=== PATIENT | female | born 1955 | race Caucasian/White ===

== ENCOUNTER → 2017-01-08 | Outpatient (CLI) | payer MEDICARE, MEDICAID ==
[~2017-01-08] MED LIST: ALBU0.8322 IH; ALBU2.5V4 IH; ALPR.5T PO; ATEN25TA PO; CITA40TA19 PO; CYCL10TA9 PO; DICY10CA26 PO; FLUT1DIS26 IH; FNT25TD TD; GBPN300C PO; HYDR1TAB86 PO; LORA2TAB PO; MOME13HF IH; NAPR-243 PO; ROPI0.5T2 PO; WRF10T PO; WRF2.5T PO; WRF5T PO; ZLP10T PO
--- NOTE | 2017-01-08 15:26 | Diagnostic Imaging Report ---
INDICATION: Back pain. Previous history of cervical fusion and laminectomy. Noncontrasted images of the thoracic spine are available for review. FINDINGS: Sagittal images show good alignment of the vertebral bodies. Body height is well maintained with no compression fractures. No marrow changes are seen throughout the thoracic spine. Discs show normal contour with no disc herniations. There is no spinal stenosis. The thoracic cord appears normal throughout its course. Conus medullaris is in good position at T12. The paraspinal soft tissues appear normal. IMPRESSION: Normal MRI of the thoracic spine. Dictated by: Dictated on workstation # [id number]
--- NOTE | 2017-01-08 15:26 | Diagnostic Imaging Report ---
PROCEDURE: MR imaging cervical spine without contrast. TECHNIQUE: Multiplanar, multisequence MR imaging of the cervical spine was performed without contrast. INDICATION: History of previous cervical fusion and laminectomy. Continued neck pain. COMPARISON: No previous studies for comparison. FINDINGS: Sagittal images show good alignment of the vertebral bodies. Body height is well maintained. Disc spaces are well preserved. There are pedicle screws present from C3 through C7. These are causing considerable artifact. There is good decompressive laminectomy noted with no spinal stenosis. There is mild posterior facet and ligamentous hypertrophy at the C3 and T1 levels. These are not causing significant encroachment upon the canal. The cervical cord appears normal with no compression. No evidence of increased T2 signal within the cord. The atlantoaxial joint appears in good alignment with mild degenerative change. The prevertebral soft tissues appear normal. IMPRESSION: 1. Laminectomy with fusion with pedicle screws and rods at C3 through C7. No evidence recurrent stenosis. No focal disc herniations. 2. There is mild posterior facet and ligamentous hypertrophy at C3 and T1. Dictated by: Dictated on workstation # [id number]
== END ==
LOC: RAD 13:13
PROVIDERS: ATTEND Orthopaedic Surgery Orthopaedic Surgery of the Spine
DX: M50.30 Other cervical disc degeneration, unspecified cervical region (principal); M54.6 Pain in thoracic spine
CPT/HCPCS: 72141; 72146

== ENCOUNTER → 2019-05-24 | Outpatient (CLI) | payer MEDICARE, MEDICAID | END | disposition home or self-care (01) | LOC: PREOP 15:14 | PROVIDERS: ATTEND Surgery | DX: Z01.818 Encounter for other preprocedural examination (principal) ==

== ENCOUNTER 2019-05-25 06:02 | Day surgery (SDC) | payer MEDICARE ==
[2019-05-25] VITALS (11 sets, daily range): BP systolic 108–149; BP diastolic 68–92
[~2019-05-25] VITALS: Ht 157.5 cm; Wt 75.3 kg
[2019-05-25] MEDS ORDERED: proPOfol 200 MG/20 ML (DIPRIVAN) VIAL IV ONE (06:48)
[2019-05-25] MEDS ORDERED: LIDOCAINE PF 2% 5 ML (XYLOCAINE) VIAL ONE (06:48)
[2019-05-25] MEDS ORDERED: fentaNYL INJECTION 100 MCG/2 ML AMP ONE (06:49)
[2019-05-25] MEDS ORDERED: MIDAZOLAM 2 MG/2 ML (VERSED) VIAL ONE (06:49)
[2019-05-25] MEDS ORDERED: DEXAMETHASONE 10 MG/ML (DECADRON) 1 ML VIAL ONE (06:55)
[2019-05-25] MEDS ORDERED: ONDANSETRON 4 MG/2 ML (SDV) Z0FRAN ONE (06:55)
[2019-05-25] MEDS ORDERED: SEVOFLURANE (ULTANE) 15 ML INHAL SOLN ONE ×2 (06:55→08:18)
[2019-05-25] MEDS ORDERED: BUP/EPI 0.5% 1:200,000 (MARCAINE) 10ML VIAL IJ ONE (07:11)
--- NOTE | 2019-05-25 08:17 | Progress Note-Pre Operative ---
Pre-Operative Progress Note H&P Reviewed The H&P was reviewed, patient examined and no changes noted. Date Seen by Provider: May 25, 2019 Time Seen by Provider: 08:00 Date H&P Reviewed: May 25, 2019 Time H&P Reviewed: 08:00 Pre-Operative Diagnosis: skin lesions right arm and right inner thigh KIMBERLY ALEXIS DO May 25, 2019 08:17
[2019-05-25] MEDS ORDERED: LACTATED RINGERS 1,000 ML IV PRN (08:42)
--- NOTE | 2019-05-25 08:43 | NUR ---
Initial visit: pt's printed circuit designer's was present. I joined them as the printed circuit designer's offered prayer. Once she exited, I remained with the pt, providing active listening. The pt attends a [facility] in [place], [place] where she has laborer marine terminal, supportive relationships. She shared experiences raising two of her grandchildren, who are now teenagers. The pt was a year ago, and shared tearfully how difficult the past year has been, and ways she continues to grieve her , Floyd. I offered compassionate presence and prayer. She hugged me at the close of our visit and thanked me for listening.
[2019-05-25] MEDS ORDERED: PHENYLEPHRINE 100 MCG/ML 10 ML (ANESTHESIA) SYR ONE (08:53)
--- NOTE | 2019-05-25 09:01 | Progress Note-Post Operative ---
Post-Operative Progess Note Surgeon (s)/Process Stripper (s) Surgeon KIMBERLY ALEXIS DO Process Stripper: na Pre-Operative Diagnosis skin lesions right arm and right inner thigh Post-Operative Diagnosis same Procedure & Operative Findings Date of Procedure 05/25/19 Procedure Performed/Findings excision right forearm lesions and right inner thigh lesion Anesthesia Type mac c local Estimated Blood Loss Estimated blood loss (mL): min Specimens/Packing Specimens Removed distal right forearm, proximal right forearm, right inner thigh KIMBERLY ALEXIS DO May 25, 2019 09:01
--- NOTE | 2019-05-25 09:04 | Discharge Inst-Simple/Standard ---
Discharge Inst-Standard Patient Instructions/Follow Up Plan of Care/Instructions/FU: Dieter 12 -14 days Activity as Tolerated: Yes Discharge Diet: Regular Diet Other Inst to Patient Follow up Appt: Make appointment for 12-14 days Instructions: No strenuous activity. May shower in 24 hours, no tub bath or soaking. Use incentive spirometer at home as directed. No Smoking Keep area clean and dry. Skin/Wound Care: May remove bandages. You need to leave the white strips over incision on they will fall off on their own. Symptoms to Report: Appetite Changes, Extremity Discoloration, Numbness/Tingling, Swelling Increased, Bleeding Excessive, Eyesight Changes, Pain Increased, Urine Color Change, Constipation(Persistent), Fever over 101 degree F, Pain/Pressure in chest, Urinating Difficulty, Cough Up/Vomit Blood, Heart Beat Irreg/Pounding, Pain/Pressure in jaw, Vaginal Bleeding Increase, Cramps in feet or legs, Lightheadedness, Pain/Pressure in shoulder, Diarrhea(Persistent), Memory Changes Suddenly, Questions/Concerns, Weight gain consecutive days, Dizziness/Fainting, Nausea/Vomiting, Shortness of Breath, Weight gain over 2 pounds If questions or concerns contact your physician Or seek help at emergency department. KIMBERLY ALEXIS DO May 25, 2019 09:04
[2019-05-25] MEDS ORDERED: HYDROmorphone 2 MG/ML VIAL (DILAUDID) IV ONE (09:15)
[2019-05-25] MEDS ORDERED: ONDANSETRON 4 MG/2 ML (SDV) Z0FRAN IVP PRN (09:15)
--- NOTE | 2019-05-25 13:36 | OPERATIVE REPORT ---
DATE OF SERVICE: 05/25/2019 PREOPERATIVE DIAGNOSIS: Skin lesions of the right upper extremity x2 and right inner thigh x1. POSTOPERATIVE DIAGNOSIS: Skin lesions of the right upper extremity x2 and right inner thigh x1. PROCEDURE: Excision of skin lesion distal right forearm 0.9 x 1.6 cm, excision of proximal lesion right forearm 0.9 x 1.5 cm, excision of right inner thigh lesion 1.2 cm x 2.5 cm. SURGEON: Kimberly Garcias DO ANESTHESIA: MAC with local. ESTIMATED BLOOD LOSS: Minimal. COMPLICATIONS: None. INDICATIONS: The patient is a 64-year-old female who wished to have lesions removed. She understands risks and benefits of procedure and wished to proceed with procedure. Consent was signed in the chart. PROCEDURE IN DETAIL: The patient was taken to the operating suite. She was too anxious to have done in the office. Timeout was performed. The patient was prepped and draped in sterile fashion. Local anesthetic was infiltrated around the lesions. Over the right forearm, elliptical incision was made with a 15 blade scalpel, removing skin and subcutaneous tissue. The measurements are as noted as above. Once the skin and subcutaneous tissue was removed, the skin was closed using 4-0 nylon in a simple running fashion. Both the right proximal and distal lesions were removed in same fashion. The area was washed and dried and sterile bandage was applied. The right inner thigh was prepped and draped in sterile fashion. Local anesthetic was infiltrated around the lesion. The elliptical incision was made, removing skin and subcutaneous tissue. The skin was then closed using 4-0 nylon in a simple running fashion. The area was then washed and dried and sterile bandage was applied. The patient tolerated procedure well without any complications. She was taken to recovery room in stable condition. Job ID: [id number] DocumentID: [id number] Dictated Date: 05/25/2019 09:08:09 Tension Machine Operator Date: 05/25/2019 13:35:57 Dictated By: KIMBERLY GARCIAS DO
--- NOTE | 2019-05-25 13:38 | Anesthesia-General Post-Op ---
General Patient Condition Mental Status/LOC: Same as Preop Cardiovascular: Satisfactory Nausea/Vomiting: Absent Respiratory: Satisfactory Pain: Controlled Complications: Absent Post Op Complications Complications None Follow Up Care/Instructions Patient Instructions None needed. Anesthesia/Patient Condition Patient Condition Patient is doing well, no complaints, stable vital signs, no apparent adverse anesthesia problems. No complications reported per nursing. FABRIZIO VILLAGOMEZ CRNA May 25, 2019 13:38
== END 2019-05-25 11:40 | disposition home or self-care (01) ==
LOC: SDC 06:02
PROVIDERS: ATTEND Surgery
DX: L82.1 Other seborrheic keratosis (principal); D21.21 Benign neoplasm of connective and other soft tissue of right lower limb, including hip; I10 Essential (primary) hypertension; G47.33 Obstructive sleep apnea (adult) (pediatric); J44.9 Chronic obstructive pulmonary disease, unspecified; F32.9 Major depressive disorder, single episode, unspecified; F41.9 Anxiety disorder, unspecified; K44.9 Diaphragmatic hernia without obstruction or gangrene; K21.9 Gastro-esophageal reflux disease without esophagitis; Z11.2 Encounter for screening for other bacterial diseases; Z88.0 Allergy status to penicillin; Z88.1 Allergy status to other antibiotic agents; Z79.899 Other long term (current) drug therapy; Z96.651 Presence of right artificial knee joint; Z87.891 Personal history of nicotine dependence
CPT/HCPCS: 87081

== ENCOUNTER 2019-05-29 08:17 | Emergency (ER) | payer MEDICARE ==
[~2019-05-29] VITALS: Ht 157.5 cm; Wt 71.7 kg
--- NOTE | 2019-05-29 08:52 | ED Integumentary General ---
General Chief Complaint: Skin/Wound Problems Stated Complaint: WOUND CHECK Source: patient Exam Limitations: no limitations History of Present Illness Date Seen by Provider: May 29, 2019 Time Seen by Provider: 08:45 Initial Comments 64-year-old white female presents for a wound check following excisions by Dr. Garcias of her right arm and right thigh approximately week ago. Patient is concerned because she has some bruising over the excision site of the proximal right thigh. Patient associated fever, chills, purulent drainage, paresthesia or weakness in extremities. Allergies and Home Medications Allergies Coded Allergies: Cephalexin Monohydrate (Unverified Allergy, HIVES, 11/10/12) Erythromycin Base (Unverified Allergy, NAUSEA, 11/10/12) SEVERE UPSET STOMACH Haloperidol Lactate (Unverified Allergy, 11/10/12) SEVERE ANXIETY Metronidazole HCl (Unverified Allergy, NAUSEA, 11/10/12) Penicillins (Unverified Allergy, HIVES, 11/10/12) haloperidol (Unverified Allergy, 11/10/12) SEVERE ANXIETY metronidazole (Unverified Allergy, NAUSEA, 11/10/12) Uncoded Allergies: BANDAIDS (Allergy, RASH, 11/10/12) Home Medications Albuterol Sulfate 2.5 Mg/3 Ml Solution, 2.5 MG IH Q6HR PRN, (Reported) PRN WHEEZING Atenolol 25 Mg Tablet, 25 MG PO DAILY, (Reported) Citalopram Hydrobromide 40 Mg Tablet, 40 MG PO DAILY, (Reported) Cyclobenzaprine Hcl 10 Mg Tablet, 10 MG PO BID, (Reported) Dicyclomine Hcl 10 Mg Capsule, 10 MG PO QID, (Reported) BEFORE MEALS AND AT BEDTIME Fluticasone/Salmeterol 1 Disk Inhp, 1 PUFF IH BID, (Reported) Gabapentin 300 Mg Cap, 300 MG PO TID, (Reported) Hydrocodone Bit/Acetaminophen 1 Each Tablet, 10-500 MG PO Q6H PRN, (Reported) PRN PAIN Lorazepam 2 Mg Tablet, 1 EACH PO HS PRN, (Reported) Ropinirole Hcl 0.5 Mg Tablet, 0.5 MG PO HS, (Reported) Warfarin Sodium 2.5 Mg Tablet, 1 EACH PO SUTUTHSA, (Reported) Warfarin Sodium 5 Mg Tablet, 1 EACH PO MWF, (Reported) Zolpidem Tartrate 10 Mg Tab, 10 MG PO HS PRN, (Reported) PRN SLEEP Patient Home Medication List Home Medication List Reviewed: Yes Review of Systems Review of Systems Constitutional: No chills, No fever EENTM: no symptoms reported Respiratory: no symptoms reported Cardiovascular: no symptoms reported Gastrointestinal: no symptoms reported Genitourinary: no symptoms reported Musculoskeletal: no symptoms reported Skin: see HPI (right thigh.), other (the 2 excisions from the right forearm appear to be healing well and have no ecchymosis.There is an old bruise at the excision site of the proximal medial right thigh. The bruising measures approximate 6 cm in diameter. There is no undue inflammation or drainage.) Psychiatric/Neurological: No Symptoms Reported Endocrine: No Symptoms Reported Hematologic/Lymphatic: No Symptoms Reported Past Jxkehlc-Olyfnw-Ylizfy Hx Past Med/Social Hx: Reviewed Nursing Past Med/Soc Hx Patient Social History Alcohol Use: Denies Use Recreational Drug Use: No Smoking Status: Former Smoker Type Used: Cigarettes Former Smoker, Quit: Oct 11, 1999 2nd Hand Smoke Exposure: No Recent Hopitalizations: No Immunizations Up To Date Tetanus Booster (TDap): Less than 5yrs PED Vaccines UTD: No Date of Pneumonia Vaccine: Oct 11, 2012 Date of Influenza Vaccine: Oct 26, 2012 Seasonal Allergies Seasonal Allergies: No Past Medical History Surgeries: Yes (CATARACTS, KNEE ARTH, FATTY TUMORS, BILAT CARPAL TUNNEL, CUBICAL TUNNEL ELB) Respiratory: Yes COPD Cardiac: Yes Neurological: No Reproductive Disorders: No Female Reproductive Disorders: Denies Sexually Transmitted Disease: No HIV/AIDS: No Genitourinary: No Gastrointestinal: Yes (DIVERTICULITIS) Diverticulosis Musculoskeletal: Yes Degenerate Disk Disease, Arthritis, Chronic Back Pain Endocrine: No HEENT: Yes Cataract Hearing Impairment: Denies Cancer: No Psychosocial: Yes Anxiety Integumentary: No Blood Disorders: No Physical Exam Vital Signs Capillary Refill : General Appearance: WD/WN, no apparent distress HEENT: normal ENT inspection Neck: normal inspection Cardiovascular: regular rate, rhythm Respiratory: no respiratory distress Extremities: normal range of motion Neurologic/Psychiatric: no motor/sensory deficits Skin: normal color, warm/dry, other (the 2 incisions from the right forearm are healing well without evidence of inflammation or ecchymosis. Examination of the proximal medial right thigh demonstrates an old bruise measuring approximately 6 cm in diameter that is without evidence of undue inflammation. There is no drainage from the incision site. The wound edges appear to be healing satisfactorily.) Progress/Results/Core Measures Progress Progress Note : Time: 08:49 Progress Note I reassured the patient. Paper tape was applied to the right thigh incision. Patient was asked follow up with her surgeon as scheduled in one more week. Departure Impression Primary Impression: Visit for wound check Disposition: 01 HOME, SELF-CARE Condition: Unchanged Departure-Patient Inst. Decision time for Depature: 08:50 Referrals: CHARLES CAO APRN (PCP) Primary Care Physician NO,LOCAL PHYSICIAN (Family) Primary Care Physician KIMBERLY GARCIAS DO Add. Discharge Instructions: Follow-up with Dr. Garcias and a week as scheduled. Continue to apply paper tape to the right thigh incision. Return if any problems or questions. All discharge instructions reviewed with patient and/or family. Voiced un derstanding. SHANTA SCOTT MD May 29, 2019 08:52
[2019-05-29 08:55] VITALS: BP 121/75
--- NOTE | 2019-05-29 08:55 | NUR ---
Pt discharged to home after area of ecchymosis outlined on the upper right thigh.
== END 2019-05-29 08:55 | disposition home or self-care (01) ==
LOC: EDUNIT# 08:17 → ER FS 08:18
DX: S70.11XD Contusion of right thigh, subsequent encounter (principal); J44.9 Chronic obstructive pulmonary disease, unspecified; F41.9 Anxiety disorder, unspecified; Z87.19 Personal history of other diseases of the digestive system; Z88.1 Allergy status to other antibiotic agents; Z88.0 Allergy status to penicillin; Z88.8 Allergy status to other drugs, medicaments and biological substances; Z79.51 Long term (current) use of inhaled steroids; Z79.01 Long term (current) use of anticoagulants; Z87.891 Personal history of nicotine dependence; Z98.890 Other specified postprocedural states; X58.XXXD Exposure to other specified factors, subsequent encounter
CPT/HCPCS: 99282

== ENCOUNTER → 2019-07-10 | Outpatient (CLI) | payer MEDICARE ==
--- NOTE | 2019-07-10 15:16 | Diagnostic Imaging Report ---
PROCEDURE: MRI lumbar spine. TECHNIQUE: Multiplanar, multisequence MRI of the lumbar spine was performed without contrast. INDICATION: Low back pain. FINDINGS: There are no prior studies available for comparison. The T2 sagittal images show the vertebral body heights and alignment to be generally within normal limits. The intervertebral disc spaces are fairly well maintained although there is desiccation of the disc at every level. The thecal sac is generous. There is no sign of spinal stenosis or nerve root encroachment at any level. There is no abnormal signal arising from the cord or the vertebral bodies to indicate an acute abnormality. There is no sign of a paraspinal mass. IMPRESSION: 1. There is mild degenerative disc disease throughout the lumbar spine. There is no evidence for spinal stenosis or nerve root encroachment at any level. 2. There is no sign of an acute bony abnormality or of a cord lesion. Dictated by: Dictated on workstation # [id number]
== END ==
LOC: RAD 13:52
PROVIDERS: ATTEND Nurse Practitioner Family
DX: M51.16 Intervertebral disc disorders with radiculopathy, lumbar region (principal)
CPT/HCPCS: 72148

== ENCOUNTER → 2019-07-13 | Outpatient (CLI) | payer MEDICARE ==
--- NOTE | 2019-07-13 19:12 | Diagnostic Imaging Report ---
EXAMINATION: Magnetic resonance imaging of the pelvis and right hip without contrast DATE: July 13, 2019. COMPARISON: None. INDICATION: 64-year-old female, low back pain. Right hip and leg pain. TECHNIQUE: Magnetic Resonance Imaging sequences were performed of the pelvis and right hip. Without contrast. TENDONS AND MUSCLES: The gluteus qiana muscles and their origins and insertions are intact, bilaterally. The tendons and muscles of the greater trochanter - gluteus minimus, piriformis and gluteus medius - are intact, bilaterally. Both common hamstring attachments on the ischial tuberosities are intact and the extensor muscles of the thigh are intact. The visualized portions of the flexors and adductor muscles of the thigh and their attachments on the pelvis and hips are intact. Both iliopsoas and iliacus muscles are intact. The bilateral iliopsoas tendons are intact. HIPS AND SACROILIAC JOINTS: The contours of the femoral heads and acetabuli are smooth and symmetric. There is no hip joint effusion. There is no identified fluid filled labral tear or paralabral cyst on non-arthrogram evaluation. The sacroiliac joints are unremarkable. LUMBAR SPINE: There is a mild lumbar levocurvature. Additional assessment of the lumbar spine is limited. BONE: The bones all have normal configuration. The bone marrow signal is within normal limits. Specifically, negative for fracture, osteomyelitis, osteonecrosis or marrow replacing process. BURSAE AND SOFT TISSUES: The bursae and soft tissues surrounding the pelvis and hips are within normal limits. IMPRESSION: 1. Intact muscles and tendons. 2. No acute fracture, bone contusion or evidence of osteonecrosis. 3. Unremarkable appearance of the bilateral hip joints. Dictated by: Dictated on workstation # [id number]
== END ==
LOC: RAD 10:39
PROVIDERS: ATTEND Nurse Practitioner Family
DX: M25.551 Pain in right hip (principal); G89.29 Other chronic pain; M54.5 Low back pain; M79.604 Pain in right leg
CPT/HCPCS: 73721

== ENCOUNTER 2019-07-14 12:29 | Emergency (ER) | payer MEDICARE ==
[~2019-07-14] VITALS: Ht 157.4 cm; Wt 66.8 kg
[2019-07-14] MEDS ORDERED: ORPHENADRINE 60 MG/2 ML (NORFLEX) AMP IM ONE (13:00)
[2019-07-14] MEDS ORDERED: KETOROLAC 30 MG/ML VIAL IM ONE (13:00)
--- NOTE | 2019-07-14 13:04 | ED General ---
General Chief Complaint: General Problems/Pain Stated Complaint: HIP/KNEE PAIN Source of Information: Patient Exam Limitations: No Limitations History of Present Illness Date Seen by Provider: Jul 14, 2019 Time Seen by Provider: 13:01 Initial Comments To ER per private vehicle from the radiology department where she just had a thoracic spine and mri done for some thoracic spine region muscle spasms. She has pain in her low back and down the right leg. Spelled going for several months. She is prescribed oxycodone 15 mg twice a day but only takes it once a day because she wants to get off of them. She is prescribed baclofen 3 times a day but only takes it once a day because she doesn't want to take pills. However she is here because of pain Timing/Duration: Other Severity: Moderate Allergies and Home Medications Allergies Coded Allergies: Cephalexin Monohydrate (Unverified Allergy, HIVES, 11/10/12) Erythromycin Base (Unverified Allergy, NAUSEA, 11/10/12) SEVERE UPSET STOMACH Haloperidol Lactate (Unverified Allergy, 11/10/12) SEVERE ANXIETY Metronidazole HCl (Unverified Allergy, NAUSEA, 11/10/12) Penicillins (Unverified Allergy, HIVES, 11/10/12) haloperidol (Unverified Allergy, 11/10/12) SEVERE ANXIETY metronidazole (Unverified Allergy, NAUSEA, 11/10/12) Uncoded Allergies: BANDAIDS (Allergy, RASH, 11/10/12) Home Medications Albuterol Sulfate 2.5 Mg/3 Ml Solution, 2.5 MG IH Q6HR PRN, (Reported) PRN WHEEZING Atenolol 25 Mg Tablet, 25 MG PO DAILY, (Reported) Citalopram Hydrobromide 40 Mg Tablet, 40 MG PO DAILY, (Reported) Cyclobenzaprine Hcl 10 Mg Tablet, 10 MG PO BID, (Reported) Dicyclomine Hcl 10 Mg Capsule, 10 MG PO QID, (Reported) BEFORE MEALS AND AT BEDTIME Fluticasone/Salmeterol 1 Disk Inhp, 1 PUFF IH BID, (Reported) Gabapentin 300 Mg Cap, 300 MG PO TID, (Reported) Hydrocodone Bit/Acetaminophen 1 Each Tablet, 10-500 MG PO Q6H PRN, (Reported) PRN PAIN Lorazepam 2 Mg Tablet, 1 EACH PO HS PRN, (Reported) Ropinirole Hcl 0.5 Mg Tablet, 0.5 MG PO HS, (Reported) Warfarin Sodium 2.5 Mg Tablet, 1 EACH PO SUTUTHSA, (Reported) Warfarin Sodium 5 Mg Tablet, 1 EACH PO MWF, (Reported) Zolpidem Tartrate 10 Mg Tab, 10 MG PO HS PRN, (Reported) PRN SLEEP Patient Home Medication List Home Medication List Reviewed: Yes Review of Systems Review of Systems Constitutional: see HPI EENTM: see HPI Respiratory: no symptoms reported Cardiovascular: no symptoms reported Genitourinary: no symptoms reported Musculoskeletal: no symptoms reported Skin: no symptoms reported Psychiatric/Neurological: No Symptoms Reported Hematologic/Lymphatic: No Symptoms Reported Past Phmjrqt-Xmynlv-Kjdgil Hx Patient Social History Type Used: Cigarettes Former Smoker, Quit: Oct 11, 1999 2nd Hand Smoke Exposure: No Recent Hopitalizations: No Immunizations Up To Date Tetanus Booster (TDap): Less than 5yrs PED Vaccines UTD: No Date of Pneumonia Vaccine: Oct 11, 2012 Date of Influenza Vaccine: Oct 26, 2012 Seasonal Allergies Seasonal Allergies: No Past Medical History Surgeries: Yes (CATARACTS, KNEE ARTH, FATTY TUMORS, BILAT CARPAL TUNNEL, CUBICAL TUNNEL ELB) Respiratory: Yes COPD Cardiac: Yes Neurological: No Reproductive Disorders: No Female Reproductive Disorders: Denies Sexually Transmitted Disease: No HIV/AIDS: No Genitourinary: No Gastrointestinal: Yes (DIVERTICULITIS) Diverticulosis Musculoskeletal: Yes Degenerate Disk Disease, Arthritis, Chronic Back Pain Endocrine: No HEENT: Yes Cataract Hearing Impairment: Denies Cancer: No Psychosocial: Yes Anxiety Integumentary: No Blood Disorders: No Physical Exam Vital Signs Capillary Refill : Height, Weight, BMI Height: 5'2.00" Weight: 158lbs. 0.0oz. [id number]; 30.4 BMI Method:Stated General Appearance: No Apparent Distress, WD/WN Eyes: Bilateral Eye Normal Inspection, Bilateral Eye PERRL, Bilateral Eye EOMI HEENT: PERRL/EOMI, TMs Normal Neck: Full Range of Motion, Normal Inspection, Non Tender Respiratory: No Accessory Muscle Use, No Respiratory Distress Cardiovascular: Regular Rate, Rhythm, Normal Peripheral Pulses Gastrointestinal: Normal Bowel Sounds, Non Tender, Soft Extremity: Normal Capillary Refill, Normal Inspection Neurologic/Psychiatric: Alert, Oriented x3 Skin: Normal Color, Warm/Dry Progress/Results/Core Measures Suspected Sepsis SIRS Temperature: Pulse: Respiratory Rate: Blood Pressure / Mean: Results/Orders My Orders Orders - ALFREDO SINGLETON APRN Ketorolac Injection (Toradol Injection) (07/14/19 13:00) Orphenadrine Injection (Norflex Injectio (07/14/19 13:00) Vital Signs/I&O Capillary Refill : Departure Communication (Admissions) She is able to get herself out of the wheelchair into bed without any assistance. Impression Primary Impression: Back pain Disposition: 01 HOME, SELF-CARE Condition: Stable Departure-Patient Inst. Decision time for Depature: 13:03 Referrals: CHARLES CAO APRN (PCP/Family) Primary Care Physician Patient Instructions: Upper Back Pain Add. Discharge Instructions: All discharge instructions reviewed with patient and/or family. Voiced understa nding. ALFREDO SINGLETON APRN Jul 14, 2019 13:04
[2019-07-14 13:37] VITALS: BP 145/76
== END 2019-07-14 13:38 | disposition home or self-care (01) ==
LOC: EDUNIT# 12:29 → ER 12:31
DX: M54.5 Low back pain (principal); J44.9 Chronic obstructive pulmonary disease, unspecified; F41.9 Anxiety disorder, unspecified; Z88.1 Allergy status to other antibiotic agents; Z88.0 Allergy status to penicillin; Z88.8 Allergy status to other drugs, medicaments and biological substances; Z79.51 Long term (current) use of inhaled steroids; Z79.01 Long term (current) use of anticoagulants; Z87.891 Personal history of nicotine dependence
CPT/HCPCS: 99284

== ENCOUNTER → 2019-07-14 | Outpatient (CLI) | payer MEDICARE ==
--- NOTE | 2019-07-14 13:42 | Diagnostic Imaging Report ---
EXAMINATION: MRI thoracic spine without contrast. INDICATION: Acute back pain with right-sided sciatica. TECHNIQUE: Multiplanar, multisequence MRI thoracic spine performed without contrast. COMPARISON: Comparison is made with a prior study from January 08, 2017. FINDINGS: Alignment of the thoracic spine remains normal. Vertebral body heights are well maintained. There are no findings of marrow signal abnormality present to suggest an acute osseous injury or suspicious underlying osseous lesion. Minimal degenerative endplate changes present within the mid thoracic spine. There is mild lower thoracic facet hypertrophy. There are no MR findings of thoracic cord signal abnormality or abnormal cord expansion. There are no findings of an abnormal epidural process. There are no findings of a focal disc herniation. There is no MR evidence of significant thoracic canal stenosis or evidence of high-grade thoracic neural foraminal stenosis. The paraspinal soft tissues are unremarkable. The aorta is normal in caliber. The kidneys appear nonobstructed. IMPRESSION: 1. Normal height and alignment of the thoracic spine. No acute or suspicious osseous abnormality demonstrated. 2. Minimal degenerative endplate changes and mild lower thoracic facet hypertrophy. There are no findings of a disc herniation. There is no MR evidence of thoracic canal or neural foraminal stenosis. 3. No cord signal abnormality or abnormal epidural process. Dictated by: Dictated on workstation # [id number]
== END ==
LOC: RAD 11:44
PROVIDERS: ATTEND Nurse Practitioner Family
DX: M54.41 Lumbago with sciatica, right side (principal)
CPT/HCPCS: 72146

== ENCOUNTER 2019-10-08 18:51 | Emergency (ER) | payer MEDICARE, MEDICAID ==
[~2019-10-08] VITALS: Ht 157.5 cm; Wt 73.5 kg
--- NOTE | 2019-10-08 19:26 | ED General ---
General Chief Complaint: Lower Extremity Stated Complaint: RT KNEE PAIN Nursing Triage Note: PT AMBULATE TO ROOM FS OF WITH C/O RIGHT KNEE PAIN. PT STATES THIS IS CHRONIC AND HAS A KNEE SURGERY SCHEDULED FOR 11.01.19. PT REPORTS SHE KNOWS SHE HAS FLUID ON THE KNEE AND THAT THE PAIN IS UNBEARABLE TODAY. PT REPORTS PREVIOUS SURGERY ON SAME KNEE THAT NEEDS REPAIRED. Nursing Sepsis Screen: No Definite Risk Source of Information: Patient History of Present Illness Date Seen by Provider: Oct 08, 2019 Time Seen by Provider: 19:25 Initial Comments 64-year-old female presenting with complaints of increased pain to her right knee. She has chronic pain with the right knee and is scheduled to work with [facility] [employer] to have the knee replacement revised. She also has noted that she had been having a lot of itching in her ears and was trying to clean her right ear earlier in the day when she started having bleeding from the ear canal. She was having some mild pain from that. She is not currently having any bleeding. She denies any new injury to her right knee to cause increased pain. She has had no new falls. She has chronically had issues with the knee since the previous knee replacement. It is been getting worse and again she is scheduled to work with [facility] in orthopedics to get a new revision of the prior knee replacement. She has oxycodone 15 mg that she takes twice a day to help control her pain. She feels like that has not been enough and it was worse today so she came to the emergency department. Allergies and Home Medications Allergies Coded Allergies: Cephalexin Monohydrate (Unverified Allergy, Unknown, HIVES, 07/14/19) Haloperidol Lactate (Unverified Allergy, Unknown, 07/14/19) SEVERE ANXIETY Metronidazole HCl (Unverified Allergy, Unknown, NAUSEA, 07/14/19) Penicillins (Unverified Allergy, Unknown, HIVES, 07/14/19) erythromycin base (Unverified Allergy, Unknown, NAUSEA, 07/14/19) SEVERE UPSET STOMACH haloperidol (Unverified Allergy, Unknown, 07/14/19) SEVERE ANXIETY metronidazole (Unverified Allergy, Unknown, NAUSEA, 07/14/19) Uncoded Allergies: BANDAIDS (Allergy, Unknown, RASH, 07/14/19) FIBERGLASS (Allergy, Unknown, 07/14/19) Home Medications Albuterol Sulfate 2.5 Mg/3 Ml Solution, 2.5 MG IH Q6HR PRN, (Reported) PRN WHEEZING Atenolol 25 Mg Tablet, 25 MG PO DAILY, (Reported) Citalopram Hydrobromide 40 Mg Tablet, 40 MG PO DAILY, (Reported) Cyclobenzaprine Hcl 10 Mg Tablet, 10 MG PO BID, (Reported) Dicyclomine Hcl 10 Mg Capsule, 10 MG PO QID, (Reported) BEFORE MEALS AND AT BEDTIME Fluticasone/Salmeterol 1 Disk Inhp, 1 PUFF IH BID, (Reported) Gabapentin 300 Mg Cap, 300 MG PO TID, (Reported) Hydrocodone Bit/Acetaminophen 1 Each Tablet, 10-500 MG PO Q6H PRN, (Reported) PRN PAIN Lorazepam 2 Mg Tablet, 1 EACH PO HS PRN, (Reported) Ropinirole Hcl 0.5 Mg Tablet, 0.5 MG PO HS, (Reported) Warfarin Sodium 2.5 Mg Tablet, 1 EACH PO SUTUTHSA, (Reported) Warfarin Sodium 5 Mg Tablet, 1 EACH PO MWF, (Reported) Zolpidem Tartrate 10 Mg Tab, 10 MG PO HS PRN, (Reported) PRN SLEEP Patient Home Medication List Home Medication List Reviewed: Yes Review of Systems Review of Systems Constitutional: No chills, No fever EENTM: ear discharge (bleeding from the right ear after cleaning it this morning), ear pain (right ear pain after cleaning it this morning) Respiratory: no symptoms reported Cardiovascular: no symptoms reported Gastrointestinal: no symptoms reported Genitourinary: no symptoms reported Musculoskeletal: see HPI Skin: No change in color, No rash Psychiatric/Neurological: Denies Headache Past Zguqffh-Qwyhdi-Asxqpn Hx Past Med/Social Hx: Reviewed Nursing Past Med/Soc Hx Patient Social History Alcohol Use: Denies Use Recreational Drug Use: No Smoking Status: Former Smoker Type Used: Cigarettes Former Smoker, Quit: Oct 11, 1999 2nd Hand Smoke Exposure: No Recent Foreign Travel: No Contact w/Someone Who Travel: No Recent Infectious Disease Expo: No Recent Hopitalizations: No Physical Abuse: No Sexual Abuse: No Mistreated: No Fear: No Immunizations Up To Date Tetanus Booster (TDap): Less than 5yrs PED Vaccines UTD: No Date of Pneumonia Vaccine: Oct 11, 2012 Date of Influenza Vaccine: Oct 26, 2012 Seasonal Allergies Seasonal Allergies: No Past Medical History Surgeries: Yes (CATARACTS, KNEE ARTH, FATTY TUMORS, BILAT CARPAL TUNNEL, CUBICAL TUNNEL ELB) Adenoidectomy, Gallbladder, Hysterectomy, Tonsillectomy Respiratory: Yes COPD Cardiac: Yes Hypertension Neurological: No Reproductive Disorders: No Female Reproductive Disorders: Denies Sexually Transmitted Disease: No HIV/AIDS: No Genitourinary: No Gastrointestinal: Yes (DIVERTICULITIS) Diverticulosis Musculoskeletal: Yes Degenerate Disk Disease, Arthritis, Chronic Back Pain Endocrine: No HEENT: Yes Cataract Hearing Impairment: Denies Cancer: No Psychosocial: Yes Anxiety, Depression Integumentary: No Blood Disorders: No Physical Exam Vital Signs Vital Signs - First Documented 10/08/19 10/08/19 19:10 20:23 Temp 36.6 Pulse 59 Resp 16 B/P (MAP) 124/56 (78) Pulse Ox 97 O2 Delivery Room Air Capillary Refill : Less Than 3 Seconds Height, Weight, BMI Height: 5'2.00" Weight: 158lbs. 0.0oz. [id number]; 29.00 BMI Method:Stated General Appearance: No Apparent Distress HEENT: TMs Normal, Moist Mucous Membranes, Other (and the patient was blood present in the right external auditory canal. Both canals appear dry with some flaky skin present but only at the right canal has an abrasion with blood) Extremity: Normal Range of Motion, No Calf Tenderness, Other (right knee is swollen which the patient reports is stable for her. There is diffuse tenderness of the knee. There is no bruising or abrasion. There is a clicking and popping with flexion of the knee.) Neurologic/Psychiatric: Alert, Oriented x3, Normal Mood/Affect Skin: Normal Color, Warm/Dry Progress/Results/Core Measures Suspected Sepsis Recent Fever Within 48 Hours: No Infection Criteria Present: None New/Unexplained Altered Menta: No Sepsis Screen: No Definite Risk SIRS Temperature: Pulse: 59 Respiratory Rate: 16 Blood Pressure 124 /56 Mean: 78 Results/Orders My Orders Orders - FABIANO OWENS MD Rx-Oxycodone/Apap 5-325 Mg (Rx-Percocet (10/08/19 20:15) Rx-Antonio/Poly/Hc Otic Susp (Rx-Cortisporin (10/08/19 21:00) Medications Given in ED Current Medications Medications Dose Ordered Sig/Aminata Route Start Time Stop Time Status Last Admin Dose Admin Oxycodone/ Acetaminophen 1 ea Q6H PRN PO 10/08/19 20:15 10/08/19 20:24 DC 10/08/19 20:16 1 EA Vital Signs/I&O 10/08/19 10/08/19 19:10 20:23 Temp 36.6 Pulse 59 67 Resp 16 17 B/P (MAP) 124/56 (78) 159/88 Pulse Ox 97 O2 Delivery Room Air Room Air Capillary Refill : Less Than 3 Seconds Blood Pressure Mean: 78 Progress Note : Progress Note Counseled patient not to insert anything into her auditory canal of the ears. Will give Cortisporin ear drops to help the abrasion heel. This might also help with the dry flaky skin in the canals. Advised to check back with her primary doctor about chronic pain management for breakthrough pain control. For tonight will give a 4 pack of Percocet for breakthrough pain on top of her oxycodone that she already has. With no acute injury to the right knee will defer on any imaging Departure Impression Primary Impression: Abrasion of right ear canal Qualified Codes: S00.411A - Abrasion of right ear, initial encounter Additional Impression: Chronic pain of right knee Disposition: HOME, SELF-CARE Condition: Stable Departure-Patient Inst. Decision time for Depature: 20:11 Referrals: [facility] [place] Primary Care Physician CHARLES CAO APRN (Family) Primary Care Physician Patient Instructions: Chronic Knee Pain (DC), How to Use Ear Drops Add. Discharge Instructions: Do not put Q tips or objects in your ear canal. Use the ear drops to help abrasion in your ear canal heal on the right side. Follow up with Amanda in the clinic about break through pain and your pain not being controlled with the Oxycodone twice a day. All discharge instructions reviewed with patient and/or family. Voiced understanding. FABIANO OWENS MD Oct 08, 2019 19:25
[2019-10-08] MEDS ORDERED: RX-OXYCODONE/APAP 5-325 MG #4 TAB PK PO PRN (20:15)
[2019-10-08 20:23] VITALS: BP 159/88
[2019-10-08] MEDS ORDERED: RX-NEO/POLYB/HC OTIC (CORTISPORIN) SUSP 10 ML BTL OT SCH (21:00)
== END 2019-10-08 20:23 | disposition home or self-care (01) ==
LOC: EDUNIT# 18:51 → ER FS 18:52
DX: S00.411A Abrasion of right ear, initial encounter (principal); G89.29 Other chronic pain; M25.561 Pain in right knee; J44.9 Chronic obstructive pulmonary disease, unspecified; I10 Essential (primary) hypertension; F41.9 Anxiety disorder, unspecified; F32.9 Major depressive disorder, single episode, unspecified; Z88.1 Allergy status to other antibiotic agents; Z88.0 Allergy status to penicillin; Z88.8 Allergy status to other drugs, medicaments and biological substances; Z79.51 Long term (current) use of inhaled steroids; Z79.01 Long term (current) use of anticoagulants; Z87.891 Personal history of nicotine dependence; Z90.89 Acquired absence of other organs; X58.XXXA Exposure to other specified factors, initial encounter
CPT/HCPCS: 99283

== ENCOUNTER 2020-06-21 19:46 | Emergency (ER) | payer MEDICARE, MEDICAID ==
[~2020-06-21] VITALS: Ht 157 cm; Wt 77.0 kg
[2020-06-21 19:50] VITALS: BP 151/75
[2020-06-21] MEDS ORDERED: DICL75TA2 PO (20:00)
--- NOTE | 2020-06-21 20:01 | ED Lower Extremity ---
General Chief Complaint: Lower Extremity Stated Complaint: LF FOOT TOE PAIN Source: patient, RN/, RN notes reviewed History of Present Illness Date Seen by Provider: Jun 21, 2020 Time Seen by Provider: 19:45 Initial Comments This patient presents to the emerge department complaining of left fifth digit lower extremity pain. Patient states she broke her toe 2 weeks ago and is having pain in her toe. No obvious signs of injury. Patient states unable follow up with her PCP today to get pain medications. Patient is requesting medications. Onset: last week (2 weeks ago) Pain/Injury Location: left 5th toe Method of Injury: direct blow Allergies and Home Medications Allergies Coded Allergies: Cephalexin Monohydrate (Unverified Allergy, Unknown, HIVES, 07/14/19) Haloperidol Lactate (Unverified Allergy, Unknown, 07/14/19) SEVERE ANXIETY Metronidazole HCl (Unverified Allergy, Unknown, NAUSEA, 07/14/19) Penicillins (Unverified Allergy, Unknown, HIVES, 07/14/19) erythromycin base (Unverified Allergy, Unknown, NAUSEA, 07/14/19) SEVERE UPSET STOMACH haloperidol (Unverified Allergy, Unknown, 07/14/19) SEVERE ANXIETY metronidazole (Unverified Allergy, Unknown, NAUSEA, 07/14/19) Uncoded Allergies: BANDAIDS (Allergy, Unknown, RASH, 07/14/19) FIBERGLASS (Allergy, Unknown, 07/14/19) Home Medications Albuterol Sulfate 2.5 Mg/3 Ml Solution, 2.5 MG IH Q6HR PRN, (Reported) PRN WHEEZING Atenolol 25 Mg Tablet, 25 MG PO DAILY, (Reported) Citalopram Hydrobromide 40 Mg Tablet, 40 MG PO DAILY, (Reported) Cyclobenzaprine Hcl 10 Mg Tablet, 10 MG PO BID, (Reported) Dicyclomine Hcl 10 Mg Capsule, 10 MG PO QID, (Reported) BEFORE MEALS AND AT BEDTIME Fluticasone/Salmeterol 1 Disk Inhp, 1 PUFF IH BID, (Reported) Gabapentin 300 Mg Cap, 300 MG PO TID, (Reported) Hydrocodone Bit/Acetaminophen 1 Each Tablet, 10-500 MG PO Q6H PRN, (Reported) PRN PAIN Lorazepam 2 Mg Tablet, 1 EACH PO HS PRN, (Reported) Ropinirole Hcl 0.5 Mg Tablet, 0.5 MG PO HS, (Reported) Warfarin Sodium 2.5 Mg Tablet, 1 EACH PO SUTUTHSA, (Reported) Warfarin Sodium 5 Mg Tablet, 1 EACH PO MWF, (Reported) Zolpidem Tartrate 10 Mg Tab, 10 MG PO HS PRN, (Reported) PRN SLEEP Patient Home Medication List Home Medication List Reviewed: Yes Review of Systems Constitutional: No no symptoms reported, No see HPI, No chills, No diaphoresis, No dizziness, No fever, No malaise, No weakness, No weight gain, No weight loss, No other EENTM: No see HPI, No no symptoms reported, No ear discharge, No hearing loss, No ear pain, No blurred vision, No double vision, No eye pain, No tearing, No vision loss, No dental problems, No hoarseness, No mouth pain, No mouth swelling, No epistaxis, No nose congestion, No nose pain, No throat pain, No throat swelling, No other Respiratory: No no symptoms reported, No see HPI, No cough, No dyspnea on exertion, No hemoptysis, No orthopnea, No phlegm, No short of breath, No stridor, No wheezing, No other Cardiovascular: No no symptoms reported, No see HPI, No chest pain, No edema, No Hx of Intervention, No palpitations, No syncope, No vascular heart diseas, No other Gastrointestinal: No RUQ, No LUQ, No RLQ, No LLQ, No no symptoms reported, No see HPI, No abdominal pain, No constipation, No diarrhea, No dysphagia, No hematemesis, No heartburn, No jaundice, No loss of appetite, No melena, No nausea, No vomiting, No other Genitourinary: No no symptoms reported, No see HPI, No decreased output, No discharge, No dysuria, No frequency, No hematuria, No hesitancy, No incontinence, No nocturia, No pain, No other Musculoskeletal: see HPI All Other Systems Reviewed Negative Unless Noted: Yes Past Lgsuiim-Qmqfjk-Hoyvgw Hx Patient Social History Alcohol Use: Denies Use Recreational Drug Use: No Type Used: Cigarettes Former Smoker, Quit: Oct 11, 1999 2nd Hand Smoke Exposure: No Recent Foreign Travel: No Contact w/Someone Who Travel: No Recent Hopitalizations: No Physical Abuse: No Sexual Abuse: No Immunizations Up To Date Tetanus Booster (TDap): Less than 5yrs PED Vaccines UTD: No Date of Pneumonia Vaccine: Oct 11, 2012 Date of Influenza Vaccine: Oct 26, 2012 Seasonal Allergies Seasonal Allergies: No Past Medical History Surgeries: Yes (CATARACTS, KNEE ARTH, FATTY TUMORS, BILAT CARPAL TUNNEL, CUBIC AL TUNNEL ELB) Adenoidectomy, Gallbladder, Hysterectomy, Tonsillectomy Respiratory: Yes COPD Cardiac: Yes Hypertension Neurological: No Reproductive Disorders: No Female Reproductive Disorders: Denies Sexually Transmitted Disease: No HIV/AIDS: No Genitourinary: No Gastrointestinal: Yes (DIVERTICULITIS) Diverticulosis Musculoskeletal: Yes Degenerate Disk Disease, Arthritis, Chronic Back Pain Endocrine: No HEENT: Yes Cataract Hearing Impairment: Denies Cancer: No Psychosocial: Yes Anxiety, Depression Integumentary: No Blood Disorders: No Physical Exam Vital Signs Capillary Refill : Height, Weight, BMI Height: 5'2.00" Weight: 158lbs. 0.0oz. [id number]; 29.00 BMI Method:Stated General Appearance: WD/WN, no apparent distress Cardiovascular: normal peripheral pulses, regular rate, rhythm, no edema, no gallop, no JVD, no murmur Gastrointestinal: normal bowel sounds, non tender, soft, no organomegaly, no pulsatile mass Feet: left foot normal inspection Departure Impression Primary Impression: Toe pain Disposition: 01 HOME, SELF-CARE Condition: Stable Departure-Patient Inst. Referrals: [facility] [place] [facility] [place] Primary Care Physician CHARLES CAO APRN (Family) Primary Care Physician Patient Instructions: Toe Injury Add. Discharge Instructions: Rest ice and elevate. Avoid wearing hardsole or tight shoes. Take medications as prescribed for pain. Follow-up with PCP for any additional medications. All discharge instructions reviewed with patient and/or family. Voiced understanding. Scripts Diclofenac Sodium (Diclofenac Sodium) 75 Mg Tablet. 75 MG PO BID for 10 Days, #20 TAB 0 Refills Prov: ANDREA VALENTINO MD 06/21/20 ANDREA VALENTINO MD Jun 21, 2020 20:01
== END 2020-06-21 20:02 | disposition home or self-care (01) ==
LOC: EDUNIT# 19:46 → ER FS 19:47
DX: M79.675 Pain in left toe(s) (principal); I10 Essential (primary) hypertension; F32.9 Major depressive disorder, single episode, unspecified; G89.29 Other chronic pain; F41.9 Anxiety disorder, unspecified; M54.9 Dorsalgia, unspecified; Z88.0 Allergy status to penicillin; Z88.1 Allergy status to other antibiotic agents; Z88.8 Allergy status to other drugs, medicaments and biological substances; Z87.891 Personal history of nicotine dependence; Z79.01 Long term (current) use of anticoagulants; Z79.891 Long term (current) use of opiate analgesic

== ENCOUNTER 2020-11-10 15:42 | Emergency (ER) | payer MEDICARE, MEDICAID ==
[~2020-11-10] VITALS: Ht 157 cm; Wt 83.0 kg
[~2020-11-10 15:42] MED LIST changes: +DICL75TA2 PO
[2020-11-10] MEDS ORDERED: NYSTATIN ORAL SUSP 5 ML UDC PO STA (16:02)
[2020-11-10] MEDS ORDERED: RT-ALBUTEROL/IPRATROPIUM 3 ML (DUONEB) VIAL INH STA (16:02)
[2020-11-10] MEDS ORDERED: ORPHENADRINE 60 MG/2 ML (NORFLEX) AMP (ED ONLY) IVP STA (16:02)
--- NOTE | 2020-11-10 16:10 | ED General ---
General Chief Complaint: General Problems/Pain Stated Complaint: SOA,MUSCLE SPASMS Nursing Triage Note: PT REPORTS HER TONGUE HAS BEEN SORE FOR TWO WEEKS. HER VOICE HAS BEEN GETTING HOARSE FOR TWO WEEKS. HER THROAT FEELS DRY AND SHE FEELS LIKE SHE GETS SHORT OF BREATH FOR THE PAST WEEK. Nursing Sepsis Screen: No Definite Risk Source of Information: Patient History of Present Illness Date Seen by Provider: Nov 10, 2020 Time Seen by Provider: 15:43 Initial Comments 65 yo female presenting with complaints of over a week of soreness in her tongue and throat as well as increasing shortness of breath. She has increased dryness in her mouth. She feels like she is getting hoarse and has lost her voice. She has increased shortness of breath from her COPD. She has a chronic cough but feels that it is worse. She is not necessarily bringing anything up with the cough. She also has chronic neck, hip and back pain. She feels like her neck pain and spasms in her muscles are worse than normal. She recently was started on a diuretic for leg swelling. 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 She has not seen her PCP about the symptoms and complaints because she reports he was out of the office this week. She denies any fever or chills. Allergies and Home Medications Allergies Coded Allergies: Cephalexin Monohydrate (Unverified Allergy, Unknown, HIVES, 07/14/19) Haloperidol Lactate (Unverified Allergy, Unknown, 07/14/19) SEVERE ANXIETY Metronidazole HCl (Unverified Allergy, Unknown, NAUSEA, 07/14/19) Penicillins (Unverified Allergy, Unknown, HIVES, 07/14/19) erythromycin base (Unverified Allergy, Unknown, NAUSEA, 07/14/19) SEVERE UPSET STOMACH haloperidol (Unverified Allergy, Unknown, 07/14/19) SEVERE ANXIETY metronidazole (Unverified Allergy, Unknown, NAUSEA, 07/14/19) Uncoded Allergies: BANDAIDS (Allergy, Unknown, RASH, 07/14/19) FIBERGLASS (Allergy, Unknown, 07/14/19) Home Medications Albuterol Sulfate 2.5 Mg/3 Ml Solution, 2.5 MG IH Q6HR PRN, (Reported) PRN WHEEZING Atenolol 25 Mg Tablet, 25 MG PO DAILY, (Reported) Citalopram Hydrobromide 40 Mg Tablet, 40 MG PO DAILY, (Reported) Cyclobenzaprine Hcl 10 Mg Tablet, 10 MG PO BID, (Reported) Diclofenac Sodium 75 Mg Tablet.dr, 75 MG PO BID Prescribed by: ANDREA VALENTINO on 06/21/201999 Dicyclomine Hcl 10 Mg Capsule, 10 MG PO QID, (Reported) BEFORE MEALS AND AT BEDTIME Fluticasone/Salmeterol 1 Disk Inhp, 1 PUFF IH BID, (Reported) Gabapentin 300 Mg Cap, 300 MG PO TID, (Reported) Hydrocodone Bit/Acetaminophen 1 Each Tablet, 10-500 MG PO Q6H PRN, (Reported) PRN PAIN Lorazepam 2 Mg Tablet, 1 EACH PO HS PRN, (Reported) Nystatin 100,000 Unit/1 Ml Oral.susp, 500,000 UNIT PO QID Prescribed by: FABIANO OWENS on 11/10/201714 Potassium Chloride 10 Meq Capsule.er, 10 MEQ PO BID Prescribed by: FABIANO OWENS on 11/10/201716 Prednisone 20 Mg Tab, 40 MG PO DAILY Prescribed by: FABIANO OWENS on 11/10/201714 Ropinirole Hcl 0.5 Mg Tablet, 0.5 MG PO HS, (Reported) Warfarin Sodium 2.5 Mg Tablet, 1 EACH PO SUTUTHSA, (Reported) Warfarin Sodium 5 Mg Tablet, 1 EACH PO MWF, (Reported) Zolpidem Tartrate 10 Mg Tab, 10 MG PO HS PRN, (Reported) PRN SLEEP Patient Home Medication List Home Medication List Reviewed: Yes Review of Systems Review of Systems Constitutional: No chills, No fever EENTM: see HPI Respiratory: see HPI Cardiovascular: No chest pain; edema (chronic in her legs and recently started on water pill) Gastrointestinal: No nausea, No vomiting Genitourinary: no symptoms reported Musculoskeletal: see HPI Skin: No rash Psychiatric/Neurological: Denies Headache, Denies Numbness Past Udvhilf-Fshwkp-Ppjwoi Hx Past Med/Social Hx: Reviewed Nursing Past Med/Soc Hx Patient Social History Alcohol Use: Denies Use Smoking Status: Former Smoker Type Used: Cigarettes Former Smoker, Quit: Oct 11, 1999 2nd Hand Smoke Exposure: No Recent Infectious Disease Expo: No Recent Hopitalizations: No Immunizations Up To Date Tetanus Booster (TDap): Less than 5yrs PED Vaccines UTD: No Date of Pneumonia Vaccine: Oct 11, 2012 Date of Influenza Vaccine: Oct 26, 2012 Seasonal Allergies Seasonal Allergies: No Past Medical History Surgeries: Yes (CATARACTS, KNEE ARTH, FATTY TUMORS, BILAT CARPAL TUNNEL, CUBICAL TUNNEL ELB) Adenoidectomy, Gallbladder, Hysterectomy, Tonsillectomy Respiratory: Yes COPD Cardiac: Yes Hypertension Neurological: No Reproductive Disorders: No Female Reproductive Disorders: Denies Sexually Transmitted Disease: No HIV/AIDS: No Genitourinary: No Gastrointestinal: Yes (DIVERTICULITIS) Diverticulosis Musculoskeletal: Yes Degenerate Disk Disease, Arthritis, Chronic Back Pain Endocrine: No HEENT: Yes Cataract Hearing Impairment: Denies Cancer: No Psychosocial: Yes Anxiety, Depression Integumentary: No Blood Disorders: No Physical Exam Vital Signs Vital Signs - First Documented 11/10/20 15:52 Temp 36.3 Pulse 81 Resp 16 B/P (MAP) 136/86 (103) Pulse Ox 99 O2 Delivery Room Air Capillary Refill : Less Than 3 Seconds Height, Weight, BMI Height: 5'2.00" Weight: 158lbs. 0.0oz. [id number]; 33.00 BMI Method:Stated General Appearance: No Apparent Distress HEENT: PERRL/EOMI; No Moist Mucous Membranes (slightly dry mucous membranes); Other (white plaque on tongue) Neck: Tender Lateral (muscle tenderness to palpation with tightness and spasms); No Tender Midline Respiratory: Chest Non Tender, Decreased Breath Sounds; No Rales; Rhonci; No Stridor; Wheezing (inspiratory and expiratory wheezing), Other (prolonged expiration) Cardiovascular: Regular Rate, Rhythm, Normal Peripheral Pulses Gastrointestinal: Normal Bowel Sounds, No Pulsatile Mass, Non Tender, Soft Extremity: Normal Capillary Refill, Pedal Edema (1+ BLE) Neurologic/Psychiatric: Alert, Oriented x3 Skin: Normal Color, Warm/Dry Progress/Results/Core Measures Suspected Sepsis Recent Fever Within 48 Hours: No Infection Criteria Present: None New/Unexplained Altered Menta: No Sepsis Screen: No Definite Risk SIRS Temperature: Pulse: 81 Respiratory Rate: 16 Laboratory Tests 11/10/20 15:55: White Blood Count 9.1 Blood Pressure 136 /86 Mean: 103 Laboratory Tests 11/10/20 15:55: Creatinine 1.14, Platelet Count 237, Total Bilirubin 0.4 Results/Orders Lab Results Laboratory Tests Test 11/10/20 15:55 Range/Units White Blood Count 9.1 4.3-11.0 10^3/uL Red Blood Count 4.32 L 4.35-5.85 10^6/uL Hemoglobin 12.5 11.5-16.0 G/DL Hematocrit 37 35-52 % Mean Corpuscular Volume 85 80-99 FL Mean Corpuscular Hemoglobin 29 25-34 PG Mean Corpuscular Hemoglobin Concent 34 32-36 G/DL Red Cell Distribution Width 12.9 10.0-14.5 % Platelet Count 237 130-400 10^3/uL Mean Platelet Volume 10.4 7.4-10.4 FL Immature Granulocyte % (Auto) 0 % Neutrophils (%) (Auto) 62 42-75 % Lymphocytes (%) (Auto) 27 12-44 % Monocytes (%) (Auto) 10 0-12 % Eosinophils (%) (Auto) 1 0-10 % Basophils (%) (Auto) 0 0-10 % Neutrophils # (Auto) 5.6 1.8-7.8 X 10^3 Lymphocytes # (Auto) 2.4 1.0-4.0 X 10^3 Monocytes # (Auto) 0.9 0.0-1.0 X 10^3 Eosinophils # (Auto) 0.1 0.0-0.3 10^3/uL Basophils # (Auto) 0.0 0.0-0.1 10^3/uL Immature Granulocyte # (Auto) 0.0 0.0-0.1 10^3/uL Sodium Level 138 135-145 MMOL/L Potassium Level 3.4 L 3.6-5.0 MMOL/L Chloride Level 99 98-107 MMOL/L Carbon Dioxide Level 26 21-32 MMOL/L Anion Gap 13 5-14 MMOL/L Blood Urea Nitrogen 24 H 7-18 MG/DL Creatinine 1.14 0.60-1.30 MG/DL Estimat Glomerular Filtration Rate 48 BUN/Creatinine Ratio 21 Glucose Level 106 H 70-105 MG/DL Calcium Level 9.1 8.5-10.1 MG/DL Corrected Calcium 8.5-10.1 MG/DL Magnesium Level 1.8 1.6-2.4 MG/DL Total Bilirubin 0.4 0.1-1.0 MG/DL Aspartate Amino Transf (AST/SGOT) 21 5-34 U/L Alanine Aminotransferase (ALT/SGPT) 22 0-55 U/L Alkaline Phosphatase 93 40-136 U/L Total Protein 7.6 6.4-8.2 GM/DL Albumin 4.7 H 3.2-4.5 GM/DL My Orders Orders - FABIANO OWENS MD Comprehensive Metabolic Panel (11/10/20 16:00) Ed Iv/Invasive Line Start (11/10/20 16:00) Cbc With Automated Diff (11/10/20 16:00) Magnesium (11/10/20 16:00) Chest Pa/Lat (2 View) (11/10/20 16:00) Ct Cervical Spine Wo (11/10/20 16:00) Nystatin Oral Suspension (Mycostatin O (11/10/20 16:02) Albuterol/Ipra Inhalation Soln (Duoneb I (11/10/20 16:02) Orphenadrine Inj (Ed Only) (Norflex Inje (11/10/20 16:02) Svn Small Volume Nebulizer (11/10/20 16:02) Methylprednisolone Sod Succ (Solu-Medrol (11/10/20 17:10) Potassium Chloride (Tablet) (K Dur Table (11/10/20 17:10) Vital Signs/I&O 11/10/20 15:52 Temp 36.3 Pulse 81 Resp 16 B/P (MAP) 136/86 (103) Pulse Ox 99 O2 Delivery Room Air Capillary Refill : Less Than 3 Seconds Blood Pressure Mean: 103 Progress Note #1: Progress Note check labs, CXR to look for infiltrate, pneumothorax, mass, effusion. CT cervical spine since reports she has acute on chronic neck pain and increased muscle spasms that is not improved with baclofen. O2 sat running 98% on room air. Give duoneb breathing treatment for her wheezing and shortness of breath. Nystatin for oral thrush. Norflex for muscle spasms. Progress Note #2: Time: 16:44 Progress Note No infiltrate, effusion or pneumothorax on CXR. CBC stable without acute significant abnormality. Chemistry shows mild hypokalemia at 3.4. Can try treating with some extra potassium in case that is contributing to her increased spasms, nystatin for possible thrush, steroid burst for COPD exacerbation. Encourage follow up with pcp. Progress Note #3: Time: 17:08 Progress Note Reviewed results and plan with patient. She reports that she is going to see her pcp on Wednesday so will have her recheck things with him then. Diagnostic Imaging Diagonstic Imaging: Xray Plain Films/CT/US/NM/MRI: chest Comments NAME: [facility] REC#: [id number] PT STATUS: REG ER : 1955 PHYSICIAN: FABIANO OWENS MD ADMIT DATE: 11/10/20/ER FS Draft Date of Exam:11/10/20 CHEST PA/LAT (2 VIEW) EXAMINATION: Chest 2 view. HISTORY: Shortness of breath. COMPARISON: None available. FINDINGS: The lungs are clear without edema or pneumonia. No pleural effusion or pneumothorax. Heart size is normal. IMPRESSION: Clear lungs. Dictated on workstation # [id number] Dict: 11/10/20 1639 Trans: 11/10/20 1642 [facility] [id number] Interpreted by: ALIZA NG MD Electronically signed by: Diagonstic Imaging: CT Plain Films/CT/US/NM/MRI: c-spine Comments NAME: [facility] REC#: [id number] PT STATUS: REG ER : 1955 PHYSICIAN: FABIANO OWENS MD ADMIT DATE: 11/10/20/ER FS Draft Date of Exam:11/10/20 CT CERVICAL SPINE WO PROCEDURE: CT cervical spine without contrast. TECHNIQUE: Multiple contiguous axial images were obtained through the cervical spine without the use of intravenous contrast. Sagittal and coronal reformations were then performed. Auto Exposure Controls were utilized during the CT exam to meet ALARA standards for radiation dose reduction. INDICATION: Increased neck pain. Prior cervical spine fusion. COMPARISON: Cervical spine MRI without contrast 01/08/2017. FINDINGS: Normal alignment. Vertebral body heights preserved. No fracture. Posterior instrumentation at C4-C7 with laminectomies. Hardware components appear intact. No evidence of loosening. No evidence of spinal canal stenosis on soft tissue windows. The visualized paravertebral soft tissues are unremarkable. The lung apices are clear. IMPRESSION: 1. No acute CT finding in the cervical spine. 2. Posterior instrumentation and laminectomies at C3-C7. No evidence of hardware failure. Dictated on workstation # [id number] Dict: 11/10/20 1637 Trans: 11/10/20 1644 [facility] [id number] Interpreted by: VIMAL LONG MD Electronically signed by: Departure Impression Primary Impression: Oral thrush Additional Impressions: COPD with exacerbation Hypokalemia Muscle spasm Disposition: HOME, SELF-CARE Condition: Stable Departure-Patient Inst. Decision time for Depature: 17:17 Referrals: [facility] (PCP) Primary Care Physician CHARLES CAO APRN (Family) Primary Care Physician Patient Instructions: COPD Exacerbation, Adult ED, COPD Diet, Thrush (DC), Hyp okalemia (DC), High Potassium Diet Add. Discharge Instructions: Take medicine for thrush to help with pain in tongue and mouth. Take medicine to help with increased shortness of breath and COPD exacerbation. For the next few days take potassium supplement to help increase your potassium levels and see if that helps with your muscle spasms. All discharge instructions reviewed with patient and/or family. Voiced understanding. Scripts Potassium Chloride (Potassium Chloride) 10 Meq Capsule.er 10 MEQ PO BID for hypokalemia for 5 Days, #10 CAP 0 Refills Prov: FABIANO OWENS MD 11/10/20 Nystatin (Nystatin) 100,000 Unit/1 Ml Oral.susp [id number] UNIT PO QID for 10 Days, #200 ML 0 Refills Prov: FABIANO OWENS MD 11/10/20 Prednisone (Prednisone) 20 Mg Tab 40 MG PO DAILY for COPD Exacerbation for 3 Days, #6 TAB 0 Refills Prov: FABIANO OWENS MD 11/10/20 FABIANO OWENS MD Nov 10, 2020 16:10
[2020-11-10 16:21] LABS: HEMATOCRIT 37 % (35-52); HEMOGLOBIN 12.5 G/DL (11.5-16.0); MEAN CORPUSCULAR HEMOGLOBIN 29 PG (25-34); MEAN CORPUSCULAR HGB CONC 34 G/DL (32-36); MEAN CORPUSCULAR VOLUME 85 FL (80-99); PLATELET COUNT 237 10^3/uL (130-400); WHITE BLOOD COUNT 9.1 10^3/uL (4.3-11.0)
[2020-11-10 16:22] LABS: BASOPHILS % (AUTO) 0 % (0-10); EOSINOPHILS # (AUTO) 0.1 10^3/uL (0.0-0.3); EOSINOPHILS % (AUTO) 1 % (0-10); LYMPHOCYTES # (AUTO) 2.4 X 10^3 (1.0-4.0); LYMPHOCYTES % (AUTO) 27 % (12-44); MEAN PLATELET VOLUME 10.4 FL (7.4-10.4); MONOCYTES # (AUTO) 0.9 X 10^3 (0.0-1.0); MONOCYTES % (AUTO) 10 % (0-12); NEUTROPHILS # (AUTO) 5.6 X 10^3 (1.8-7.8); NEUTROPHILS % (AUTO) 62 % (42-75)
[2020-11-10 16:36] LABS: ALKALINE PHOSPHATASE 93 U/L (40-136); BILIRUBIN,TOTAL 0.4 MG/DL (0.1-1.0); BUN/CREATININE RATIO 21; CALCIUM 9.1 MG/DL (8.5-10.1); CARBON DIOXIDE 26 MMOL/L (21-32); CHLORIDE 99 MMOL/L (98-107); CREATININE SERUM 1.14 MG/DL (0.60-1.30); GFR ESTIMATED 48; GLUCOSE 106 MG/DL (70-105); MAGNESIUM 1.8 MG/DL (1.6-2.4); POTASSIUM 3.4 MMOL/L (3.6-5.0); SODIUM 138 MMOL/L (135-145)
[2020-11-10 16:37] LABS: ALANINE AMINOTRANSFERASE 22 U/L (0-55); ALBUMIN 4.7 GM/DL (3.2-4.5); TOTAL PROTEIN 7.6 GM/DL (6.4-8.2)
--- NOTE | 2020-11-10 16:42 | Diagnostic Imaging Report ---
EXAMINATION: Chest 2 view. HISTORY: Shortness of breath. COMPARISON: None available. FINDINGS: The lungs are clear without edema or pneumonia. No pleural effusion or pneumothorax. Heart size is normal. IMPRESSION: Clear lungs. Dictated by: Dictated on workstation # [id number]
--- NOTE | 2020-11-10 16:44 | Diagnostic Imaging Report ---
PROCEDURE: CT cervical spine without contrast. TECHNIQUE: Multiple contiguous axial images were obtained through the cervical spine without the use of intravenous contrast. Sagittal and coronal reformations were then performed. Auto Exposure Controls were utilized during the CT exam to meet ALARA standards for radiation dose reduction. INDICATION: Increased neck pain. Prior cervical spine fusion. COMPARISON: Cervical spine MRI without contrast 01/08/2017. FINDINGS: Normal alignment. Vertebral body heights preserved. No fracture. Posterior instrumentation at C4-C7 with laminectomies. Hardware components appear intact. No evidence of loosening. No evidence of spinal canal stenosis on soft tissue windows. The visualized paravertebral soft tissues are unremarkable. The lung apices are clear. IMPRESSION: 1. No acute CT finding in the cervical spine. 2. Posterior instrumentation and laminectomies at C3-C7. No evidence of hardware failure. Dictated by: Dictated on workstation # [id number]
[2020-11-10] MEDS ORDERED: KCL 20 MEQ TAB (K-DUR) PO STA (17:10)
[2020-11-10] MEDS ORDERED: methylPREDNISolone 125 MG (Solu-MEDROL) VIAL IVP STA (17:10)
[2020-11-10] MEDS ORDERED: PRD20T PO (17:15)
[2020-11-10] MEDS ORDERED: NYST1000 PO (17:15)
[2020-11-10] MEDS ORDERED: POTA10CA43 PO (17:17)
[2020-11-10 17:25] VITALS: BP 124/68
== END 2020-11-10 17:26 | disposition home or self-care (01) ==
LOC: EDUNIT# 15:42 → ER FS 15:43
DX: B37.0 Candidal stomatitis (principal); J44.1 Chronic obstructive pulmonary disease with (acute) exacerbation; E87.6 Hypokalemia; M62.838 Other muscle spasm; I10 Essential (primary) hypertension; F32.9 Major depressive disorder, single episode, unspecified; G89.29 Other chronic pain; M54.9 Dorsalgia, unspecified; F41.9 Anxiety disorder, unspecified; Z87.891 Personal history of nicotine dependence; Z88.0 Allergy status to penicillin; Z88.1 Allergy status to other antibiotic agents; Z88.8 Allergy status to other drugs, medicaments and biological substances; Z79.01 Long term (current) use of anticoagulants; Z79.52 Long term (current) use of systemic steroids; Z79.891 Long term (current) use of opiate analgesic
CPT/HCPCS: 36415; 71046; 72125; 80053; 83735; 85025

== ENCOUNTER → 2021-01-02 | Outpatient (CLI) | payer MEDICARE, MEDICAID ==
[~2021-01-02] MED LIST changes: +NYST1000 PO; +POTA10CA43 PO; +PRD20T PO
--- NOTE | 2021-01-02 09:10 | Diagnostic Imaging Report ---
Fingers at 8:38. Indication: Trigger finger left 3rd digit 3 views were obtained. There are no prior studies available for comparison. No fracture, dislocation or acute bony abnormality identified. There may be mild soft tissue edema about the PIP joint of 3rd digit. The soft tissues are otherwise unremarkable. There does not appear to be any significant arthritic change involving the hand. Impression: There is no evidence for an acute bony abnormality although there may be mild soft tissue edema about the PIP joint of the 3rd digit. Dictated by: Dictated on workstation # [id number]
== END ==
LOC: RAD FS 08:29
PROVIDERS: ATTEND Nurse Practitioner
DX: M79.645 Pain in left finger(s) (principal)
CPT/HCPCS: 73140

== ENCOUNTER → 2021-01-08 | Outpatient (CLI) | payer MEDICARE, MEDICAID ==
[~2021-01-08] MED LIST changes: +CATHETER FLUSH 10 ML SYR IV PRN; +HOLD METFORMIN - RECEIVED CONTRAST 20 ML VIAL IV SCH; +IOHEXOL 350 MG/ML 100 ML (OMNIPAQUE 350) VIAL IV ONE; +NS 100 ML (IVPB) BAG IV ONE
[2021-01-08 11:02] LABS: BUN/CREATININE RATIO 14; CARBON DIOXIDE 27 MMOL/L (21-32); CHLORIDE 101 MMOL/L (98-107); CREATININE SERUM 0.91 MG/DL (0.60-1.30); GFR ESTIMATED > 60; POTASSIUM 4.5 MMOL/L (3.6-5.0); SODIUM 139 MMOL/L (135-145)
[2021-01-08 11:03] LABS: ALANINE AMINOTRANSFERASE 17 U/L (0-55); ALKALINE PHOSPHATASE 85 U/L (40-136); BILIRUBIN,TOTAL 0.4 MG/DL (0.1-1.0); CALCIUM 9.4 MG/DL (8.5-10.1); GLUCOSE 103 MG/DL (70-105); TOTAL PROTEIN 7.4 GM/DL (6.4-8.2)
[2021-01-08 11:04] LABS: ALBUMIN 4.5 GM/DL (3.2-4.5)
--- NOTE | 2021-01-08 13:17 | Diagnostic Imaging Report ---
PROCEDURE: CT abdomen and pelvis with contrast. TECHNIQUE: Multiple contiguous axial images were obtained through the abdomen and pelvis after administration of intravenous contrast. Auto Exposure Controls were utilized during the CT exam to meet ALARA standards for radiation dose reduction. All CT scans use one or more of the following dose optimizing techniques: automated exposure control, MA and/or KvP adjustment based on patient size and exam type or iterative reconstruction. DATE: January 08, 2021. COMPARISON: None. INDICATION: 66-year-old female, right upper quadrant abdominal pain. Concern for mass. FINDINGS: The visualized portions of the lungs are clear. The heart is not enlarged. There is no identified pericardial effusion. The liver is unremarkable in size and contour. There is no identified liver lesion. The main, right, and left portal veins are patent. The patient is status post cholecystectomy. There is no intrahepatic or extrahepatic bile duct dilation. The main pancreatic duct is not abnormally dilated. Unremarkable appearance of the pancreatic parenchyma. The spleen is normal in size. The adrenal glands are unremarkable. Unremarkable appearance of the renal parenchyma. The urinary collecting systems are not distended. There is no identified renal or ureteral stone. There are pelvic calcifications compatible with phleboliths. The urinary bladder is collapsed and not well evaluated. The uterus is not seen and likely is surgically absent. The intestinal tract is not distended. There is no free intraperitoneal air. There is no drainable fluid collection. There is no free pelvic fluid. There are atherosclerotic calcifications. There is no identified abnormally enlarged lymph node in the abdomen or pelvis meeting CT size criteria for adenopathy. There is no identified acute bony abnormality. IMPRESSION: CT ABDOMEN AND PELVIS. 1. No identified acute abnormality in the abdomen or pelvis. 2. No identified mass. Dictated by: Dictated on workstation # [id number]
== END ==
LOC: RAD FS 10:23
PROVIDERS: ATTEND Nurse Practitioner
DX: R10.11 Right upper quadrant pain (principal); R60.9 Edema, unspecified; R19.01 Right upper quadrant abdominal swelling, mass and lump; E78.2 Mixed hyperlipidemia
CPT/HCPCS: 36415; 74177; 80053